=== PATIENT | male | born 1950 | race Caucasian/White ===

== ENCOUNTER 2019-05-09 09:34 | Outpatient (CLI) | payer MEDICARE, OTHER, SELFPAY ==
[2019-05-09 09:35] VITALS: BP 148/89; PULSE 77; RESP 16; TEMP 37.3; O2SAT 100; BMI 28.8
[2019-05-09] MEDS: TBO-FILGRASTIM 480 MCG/0.8 ML ML SC (09:56)
[2019-05-09] MEDS: TBO-FILGRASTIM 480 MCG/0.8 ML ML 420 MCG SC (09:57)
--- NOTE | 2019-05-09 09:58 | ED.RN ---
PATIENT MEDICATED PER ORDERS, AMBULATES OUT OF DEPARTMENT WITHOUT ISSUE.
== END 2019-05-09 09:58 | disposition home or self-care (01) ==
LOC: ED 05-11 10:56
PROVIDERS: Family Provider Internal Medicine Hematology; PCP Internal Medicine Hematology
DX: C85.90 Non-Hodgkin lymphoma, unspecified, unspecified site (principal)
CPT/HCPCS: 96372; J1447

== ENCOUNTER 2019-05-10 09:23 | Outpatient (CLI) | payer MEDICARE, OTHER, SELFPAY ==
[2019-05-09 09:35] VITALS: BMI 28.8
[2019-05-10 09:31] VITALS: BP 129/79; PULSE 77; RESP 16; TEMP 36.6; O2SAT 98; BMI 28.0
[2019-05-10] MEDS: TBO-FILGRASTIM 480 MCG/0.8 ML ML SC (09:53)
[2019-05-10] MEDS: TBO-FILGRASTIM 480 MCG/0.8 ML ML 420 MCG SC (09:53)
== END 2019-05-10 09:54 | disposition home or self-care (01) ==
LOC: ED 05-11 10:58
PROVIDERS: Family Provider Internal Medicine Hematology; PCP Internal Medicine Hematology
DX: C85.90 Non-Hodgkin lymphoma, unspecified, unspecified site (principal)
CPT/HCPCS: 96372; J1447

== ENCOUNTER → 2019-05-11 11:24 | Outpatient (CLI) | payer MEDICARE, OTHER, SELFPAY ==
[2019-05-10 09:31] VITALS: BMI 28.0
[2019-05-11 11:53] VITALS: BP 115/80; PULSE 66; RESP 18; TEMP 37.3; O2SAT 96; BMI 28.0
[2019-05-11] MEDS: TBO-FILGRASTIM 480 MCG/0.8 ML ML SC (12:00)
[2019-05-11] MEDS: TBO-FILGRASTIM 480 MCG/0.8 ML ML 420 MCG SC (12:01)
== END ==
PROVIDERS: Family Provider Internal Medicine Hematology; PCP Internal Medicine Hematology; Referring Provider Internal Medicine Hematology; Visit Provider Internal Medicine Hematology
DX: C85.90 Non-Hodgkin lymphoma, unspecified, unspecified site (principal)
CPT/HCPCS: 96372; J1447

== ENCOUNTER → 2019-05-12 10:02 | Outpatient (CLI) | payer MEDICARE, OTHER, SELFPAY ==
[2019-05-11 11:53] VITALS: BMI 28.0
[2019-05-12 10:16] VITALS: BP 147/86; PULSE 71; RESP 16; TEMP 36.7; BMI 28.0
[2019-05-12] MEDS: TBO-FILGRASTIM 480 MCG/0.8 ML ML SC (10:20)
[2019-05-12] MEDS: TBO-FILGRASTIM 480 MCG/0.8 ML ML 420 MCG SC (10:21)
== END ==
PROVIDERS: Family Provider Internal Medicine Hematology; PCP Internal Medicine Hematology; Referring Provider Internal Medicine Hematology; Visit Provider Internal Medicine Hematology
DX: C85.90 Non-Hodgkin lymphoma, unspecified, unspecified site (principal)
CPT/HCPCS: 96372; J1447

== ENCOUNTER → 2019-06-12 13:29 | Outpatient (CLI) | payer MEDICARE, OTHER, SELFPAY ==
[2019-05-12 10:16] VITALS: BMI 28.0
[2019-06-12 13:49] VITALS: BP 125/77; PULSE 75; RESP 16; TEMP 36.7; O2SAT 99; BMI 26.6
== END ==
PROVIDERS: PCP Internal Medicine Hematology
DX: A41.9 Sepsis, unspecified organism (principal); D70.9 Neutropenia, unspecified
CPT/HCPCS: 96365; J7050; A4216; J0696

== ENCOUNTER 2019-06-13 13:21 | Outpatient (CLI) | payer MEDICARE, OTHER, SELFPAY ==
[2019-05-12 10:16] VITALS: BMI 28.0
[2019-06-12 13:49] VITALS: BMI 26.6
[2019-06-13 13:40] VITALS: BP 116/78; PULSE 77; RESP 16; TEMP 36.7; O2SAT 97
== END 2019-06-13 14:47 | disposition home or self-care (01) ==
LOC: MEDOUTP 13:26 → PCU 13:28
PROVIDERS: PCP Internal Medicine Hematology; Referring Provider Internal Medicine Hematology
DX: A41.9 Sepsis, unspecified organism (principal); D70.9 Neutropenia, unspecified
CPT/HCPCS: 96365; J0696

== ENCOUNTER 2019-06-14 12:07 | Outpatient (CLI) | payer MEDICARE, OTHER, SELFPAY ==
[2019-05-12 10:16] VITALS: BMI 28.0
[2019-06-12 13:49] VITALS: BMI 26.6
[2019-06-14 12:47] VITALS: BP 109/67; PULSE 65; RESP 18; TEMP 36.8; O2SAT 99
[2019-06-14] MEDS: 0.9% Saline Lock 10 ML Syringe IV (13:30)
== END 2019-06-14 13:36 | disposition home or self-care (01) ==
LOC: MEDOUTP 12:21 → PCU 12:22
PROVIDERS: PCP Internal Medicine Hematology
DX: A41.9 Sepsis, unspecified organism (principal); D70.9 Neutropenia, unspecified
CPT/HCPCS: 96365; J7050; A4216; J0696

== ENCOUNTER → 2019-06-15 12:49 | Outpatient (CLI) | payer MEDICARE, OTHER, SELFPAY ==
[2019-05-12 10:16] VITALS: BMI 28.0
[2019-06-12 13:49] VITALS: BMI 26.6
[2019-06-15 12:55] VITALS: BP 107/68; PULSE 75; RESP 16; TEMP 36.6; O2SAT 99; BMI 25.8
== END ==
PROVIDERS: PCP Internal Medicine Hematology
DX: A41.9 Sepsis, unspecified organism (principal); D70.9 Neutropenia, unspecified
CPT/HCPCS: 96365; J7050; A4216; J0696

== ENCOUNTER → 2019-06-16 13:13 | Outpatient (CLI) | payer MEDICARE, OTHER, SELFPAY ==
[2019-05-12 10:16] VITALS: BMI 28.0
[2019-06-15 12:55] VITALS: BMI 25.8
[2019-06-16 13:23] VITALS: BP 103/69; PULSE 73; RESP 16; TEMP 36.7; O2SAT 100; BMI 25.8
== END ==
PROVIDERS: PCP Internal Medicine Hematology
DX: A41.9 Sepsis, unspecified organism (principal); D70.9 Neutropenia, unspecified
CPT/HCPCS: 96365; J7050; A4216; J0696

== ENCOUNTER → 2019-06-17 12:53 | Outpatient (CLI) | payer MEDICARE, OTHER, SELFPAY ==
[2019-05-12 10:16] VITALS: BMI 28.0
[2019-06-16 13:23] VITALS: BMI 25.8
[2019-06-17 13:04] VITALS: BP 112/73; PULSE 68; RESP 16; TEMP 36.4; O2SAT 97; BMI 25.8
== END ==
PROVIDERS: PCP Internal Medicine Hematology
DX: A41.9 Sepsis, unspecified organism (principal); D70.9 Neutropenia, unspecified
CPT/HCPCS: 96365; J7050; A4216; J0696

== ENCOUNTER → 2019-06-19 12:24 | Outpatient (CLI) | payer MEDICARE, OTHER, SELFPAY ==
[2019-05-12 10:16] VITALS: BMI 28.0
[2019-06-17 13:04] VITALS: BMI 25.8
[2019-06-19 12:39] VITALS: BP 107/72; PULSE 74; RESP 18; TEMP 36.9; O2SAT 100; BMI 25.8
[2019-06-19 13:51] VITALS: BP 104/66; PULSE 67; RESP 18; TEMP 37.1
== END ==
PROVIDERS: PCP Internal Medicine Hematology
DX: A41.9 Sepsis, unspecified organism (principal); D70.9 Neutropenia, unspecified
CPT/HCPCS: 96365; A4216; J0696

== ENCOUNTER 2019-06-20 10:53 | Outpatient (CLI) | payer MEDICARE, OTHER, SELFPAY ==
[2019-06-15 12:55] VITALS: BMI 25.8
[2019-06-19 12:39] VITALS: BMI 25.8
[2019-06-20 11:20] VITALS: BP 109/68; PULSE 65; RESP 16; TEMP 36.9; O2SAT 99
[2019-06-20] MEDS: 0.9% Saline Lock 10 ML Syringe IV ×2 (11:30→12:08)
--- NOTE | 2019-06-20 12:21 | NURSING ---
Reviewed and agreed on all charting with Maria R Patel RN
== END 2019-06-20 12:17 | disposition home or self-care (01) ==
LOC: MEDOUTP 10:53 → PCU 10:57
PROVIDERS: PCP Internal Medicine Hematology
DX: A41.9 Sepsis, unspecified organism (principal); D70.9 Neutropenia, unspecified
CPT/HCPCS: 96365; J7050; A4216; J0696

== ENCOUNTER 2019-06-21 11:04 | Outpatient (CLI) | payer MEDICARE, OTHER, SELFPAY ==
[2019-06-15 12:55] VITALS: BMI 25.8
[2019-06-19 12:39] VITALS: BMI 25.8
[2019-06-21 11:10] VITALS: BP 116/59; PULSE 91; RESP 14; TEMP 36.7; O2SAT 97; BMI 25.8
[2019-06-21] MEDS: 0.9% Saline Lock 10 ML Syringe IV ×2 (11:23→11:54)
--- NOTE | 2019-06-21 12:01 | NURSING ---
FLUSHED PORT LINE WITH 10 CC NS BEFORE AND AFTER ANTIBIOTIC INFUSION, BLOOD RETURN NOTED. VSS. PT TOLERATED WELL.
== END 2019-06-21 11:58 | disposition home or self-care (01) ==
LOC: MEDOUTP 11:04 → PCU 11:05
PROVIDERS: PCP Internal Medicine Hematology
DX: A41.9 Sepsis, unspecified organism (principal); D70.9 Neutropenia, unspecified
CPT/HCPCS: 96365; A4216; J0696

== ENCOUNTER → 2019-06-22 11:10 | Outpatient (CLI) | payer MEDICARE, OTHER, SELFPAY ==
[2019-06-15 12:55] VITALS: BMI 25.8
[2019-06-21 11:10] VITALS: BMI 25.8
[2019-06-22 11:16] VITALS: BP 110/69; PULSE 73; RESP 16; TEMP 36.6; O2SAT 100; BMI 25.8
== END ==
PROVIDERS: PCP Internal Medicine Hematology
DX: A41.9 Sepsis, unspecified organism (principal); D70.9 Neutropenia, unspecified
CPT/HCPCS: 96365; J7050; A4216; J0696

== ENCOUNTER → 2019-06-23 09:51 | Outpatient (CLI) | payer MEDICARE, OTHER, SELFPAY ==
[2019-06-15 12:55] VITALS: BMI 25.8
[2019-06-22 11:16] VITALS: BMI 25.8
[2019-06-23 09:58] VITALS: BP 110/62; PULSE 71; RESP 14; TEMP 36.6; O2SAT 100; BMI 25.8
[2019-06-23 11:03] VITALS: BP 100/63; RESP 16
== END ==
LOC: MEDOUTP 09:52
PROVIDERS: PCP Internal Medicine Hematology
DX: A41.9 Sepsis, unspecified organism (principal); D70.9 Neutropenia, unspecified
CPT/HCPCS: 96365; J7050; A4216; J0696

== ENCOUNTER → 2019-11-09 | Outpatient (CLI) | payer MEDICARE, OTHER, SELFPAY ==
[2019-06-23 09:58] VITALS: BMI 25.8
== END | disposition home or self-care (01) ==
LOC: LABSPEC 11:04
PROVIDERS: PCP Internal Medicine Hematology
DX: C86.5 Angioimmunoblastic T-cell lymphoma (principal)
CPT/HCPCS: 87635; G2023; U0003

== ENCOUNTER → 2019-12-01 11:39 | Outpatient (CLI) | payer MEDICARE, OTHER, SELFPAY ==
[2019-06-23 09:58] VITALS: BMI 25.8
== END ==
PROVIDERS: PCP Internal Medicine Hematology
DX: Z11.59 Encounter for screening for other viral diseases (principal)
CPT/HCPCS: 87635; G2023; U0003

== ENCOUNTER → 2019-12-15 10:01 | Outpatient (CLI) | payer MEDICARE, OTHER, SELFPAY ==
[2019-06-23 09:58] VITALS: BMI 25.8
== END ==
PROVIDERS: PCP Internal Medicine Hematology
DX: R59.1 Generalized enlarged lymph nodes (principal)
CPT/HCPCS: 36415

== ENCOUNTER → 2020-02-17 10:47 | Outpatient (CLI) | payer MEDICARE, OTHER, SELFPAY ==
[2019-06-23 09:58] VITALS: BMI 25.8
[2020-02-17 11:24] LABS: Absolute Lymphocyte Count 0.88 X10^3/uL (0.83-4.51); Absolute Neutrophil Count 2.1 X10^3/uL (2.0-7.7); Basophil# 0.02 X10^3/uL; Basophil% 0.6 % (0-1); Eosinophil# 0.04 X10^3/uL; Eosinophils% 1.2 % (0-5); Hemoglobin 12.3 g/dL (13.0-16.5); Lymphocyte # 0.88 X10^3/ul (4.0); Mean Corp Hgb Conc 34.2 g/dL (32-36); Mean Corpuscular Hgb 30.8 pg (27.0-32.0); Mean Corpuscular Volume 90.2 fL (80-94); Mean Platelet Vol. 9.7 fl (6.2-12.0); Monocyte% 8.8 % (0-10); NRBC Flagged by Analyzer 0 % (0-5); Neutrophil # 2.14 X10^3/uL (2.7-7.7); Neutrophil % 63.1 % (47-70); Platelet Count 105 K/mm3 (150-450); RBC Distribution Width CV 12.8 % (11.6-14.6); RBC Distribution Width SD 42.3 fl (35.1-43.9); Red Blood Count 3.99 M/mm3 (4.6-6.2); White Blood Count 3.4 K/mm3 (4.4-11.0)
== END ==
PROVIDERS: PCP Internal Medicine Hematology
DX: C86.5 Angioimmunoblastic T-cell lymphoma (principal)
CPT/HCPCS: 36415; 85025

== ENCOUNTER → 2020-03-30 17:18 | Outpatient (CLI) | payer MEDICARE, OTHER, SELFPAY ==
[2019-06-23 09:58] VITALS: BMI 25.8
== END ==
PROVIDERS: PCP Internal Medicine Hematology
DX: U07.1 COVID-19 (principal)
CPT/HCPCS: 87635; C9803; U0003

== ENCOUNTER → 2020-06-10 10:14 | Outpatient (CLI) | payer MEDICARE, OTHER, SELFPAY ==
[2019-06-23 09:58] VITALS: BMI 25.8
[2020-06-10 10:44] LABS: Absolute Lymphocyte Count 1.27 X10^3/uL (0.83-4.51); Absolute Neutrophil Count 2.4 X10^3/uL (2.0-7.7); Basophil# 0.04 X10^3/uL; Basophil% 0.9 % (0-1); Eosinophil# 0.11 X10^3/uL; Eosinophils% 2.6 % (0-5); Hematocrit 37.7 % (40-54); Hemoglobin 12.7 g/dL (13.0-16.5); Lymphocyte # 1.27 X10^3/ul (4.0); Lymphocyte % 29.8 % (19-41); Mean Corp Hgb Conc 33.7 g/dL (32-36); Mean Corpuscular Hgb 30.5 pg (27.0-32.0); Mean Corpuscular Volume 90.4 fL (80-94); Mean Platelet Vol. 9.3 fl (6.2-12.0); Monocyte# 0.42 X10^3/uL; Monocyte% 9.9 % (0-10); NRBC Flagged by Analyzer 0 % (0-5); Neutrophil # 2.42 X10^3/uL (2.7-7.7); Neutrophil % 56.8 % (47-70); POSITIVE COUNT YES; Platelet Count 91 K/mm3 (150-450); RBC Distribution Width CV 12.7 % (11.6-14.6); RBC Distribution Width SD 41.5 fl (35.1-43.9); Red Blood Count 4.17 M/mm3 (4.6-6.2); White Blood Count 4.3 K/mm3 (4.4-11.0)
[2020-06-10 10:45] LABS: Differential Indicated SCAN CRITERIA MET
[2020-06-10 11:09] LABS: Anisocytosis 1+; Platelet Estimate SLT DEC (ADEQ)
[2020-06-10 11:12] LABS: ALB/GLOB Ratio 1.6 RATIO (0.9-2.4); AST(SGOT) 25 U/L (15-37); Alanine Aminotransfer ALT/SGPT 47 U/L (16-61); Albumin, Serum 4.2 g/dL (3.2-5.0); Alkaline Phosphatase 88 U/L (45-117); Anion Gap 3 (5-15); BUN 25 mg/dL (7-18); BUN/Creat Ratio 25.7 RATIO (10-20); Calcium,Total 9.2 mg/dL (8.5-10.1); Chloride 109 mmol/L (98-107); Creatinine, Serum 0.97 mg/dL (0.70-1.30); EST Glomerular Filtration Rate 81 mL/min (>60); Est Glom Filt Rate - Afr Amer 98 mL/min (>60); Globulin 2.6 g/dL (2.2-4.2); Glucose 91 mg/dL (74-106); Potassium 4.5 mmol/L (3.5-5.1); Protein, Total 6.8 g/dL (6.4-8.2); Sodium Level 140 mmol/L (136-145)
== END ==
LOC: LABSPEC 10:22 → LAB 10:28
PROVIDERS: PCP Internal Medicine Hematology
DX: C86.5 Angioimmunoblastic T-cell lymphoma (principal)
CPT/HCPCS: 36415; 80053; 85025

== ENCOUNTER → 2020-07-01 10:25 | Outpatient (CLI) | payer MEDICARE, OTHER, SELFPAY ==
[2019-06-23 09:58] VITALS: BMI 25.8
[2020-07-01 12:45] LABS: Absolute Lymphocyte Count 1.02 X10^3/uL (0.83-4.51); Absolute Neutrophil Count 2.5 X10^3/uL (2.0-7.7); Basophil# 0.03 X10^3/uL; Basophil% 0.7 % (0-1); Eosinophil# 0.08 X10^3/uL; Hematocrit 37.5 % (40-54); Hemoglobin 13.2 g/dL (13.0-16.5); Lymphocyte # 1.02 X10^3/ul (4.0); Lymphocyte % 25.3 % (19-41); Mean Corp Hgb Conc 35.2 g/dL (32-36); Mean Corpuscular Hgb 31.3 pg (27.0-32.0); Mean Corpuscular Volume 88.9 fL (80-94); Mean Platelet Vol. 10.6 fl (6.2-12.0); Monocyte# 0.37 X10^3/uL; Monocyte% 9.2 % (0-10); NRBC Flagged by Analyzer 0 % (0-5); Neutrophil # 2.52 X10^3/uL (2.7-7.7); Neutrophil % 62.6 % (47-70); POSITIVE COUNT YES; Platelet Count 98 K/mm3 (150-450); RBC Distribution Width CV 12.6 % (11.6-14.6); RBC Distribution Width SD 40.8 fl (35.1-43.9); Red Blood Count 4.22 M/mm3 (4.6-6.2)
[2020-07-01 12:47] LABS: Differential Indicated SCAN CRITERIA MET
[2020-07-01 13:06] LABS: Platelet Estimate SLT DEC (ADEQ)
[2020-07-01 13:21] LABS: ALB/GLOB Ratio 1.6 RATIO (0.9-2.4); AST(SGOT) 29 U/L (15-37); Alanine Aminotransfer ALT/SGPT 48 U/L (16-61); Albumin, Serum 4.2 g/dL (3.2-5.0); Alkaline Phosphatase 95 U/L (45-117); Anion Gap 6 (5-15); BUN 22 mg/dL (7-18); BUN/Creat Ratio 20.8 RATIO (10-20); Calcium,Total 9.5 mg/dL (8.5-10.1); Chloride 108 mmol/L (98-107); Creatinine, Serum 1.06 mg/dL (0.70-1.30); EST Glomerular Filtration Rate 73 mL/min (>60); Est Glom Filt Rate - Afr Amer 88 mL/min (>60); Globulin 2.6 g/dL (2.2-4.2); Glucose 94 mg/dL (74-106); Potassium 4.1 mmol/L (3.5-5.1); Protein, Total 6.8 g/dL (6.4-8.2); Sodium Level 139 mmol/L (136-145)
== END ==
PROVIDERS: PCP Internal Medicine Hematology
DX: Z71.89 Other specified counseling (principal)
CPT/HCPCS: 36415; 80053; 85025

== ENCOUNTER → 2020-08-25 10:25 | Outpatient (CLI) | payer MEDICARE, OTHER, SELFPAY ==
[2019-06-23 09:58] VITALS: BMI 25.8
[2020-08-25 11:39] LABS: Absolute Lymphocyte Count 1.12 X10^3/uL (0.83-4.51); Absolute Neutrophil Count 2.9 X10^3/uL (2.0-7.7); Basophil# 0.03 X10^3/uL; Basophil% 0.7 % (0-1); Eosinophil# 0.12 X10^3/uL; Eosinophils% 2.6 % (0-5); Hemoglobin 13.2 g/dL (13.0-16.5); Lymphocyte # 1.12 X10^3/ul (4.0); Lymphocyte % 24.7 % (19-41); Mean Corp Hgb Conc 33.8 g/dL (32-36); Mean Corpuscular Hgb 30.5 pg (27.0-32.0); Mean Corpuscular Volume 90.1 fL (80-94); Monocyte# 0.37 X10^3/uL; Monocyte% 8.2 % (0-10); NRBC Flagged by Analyzer 0 % (0-5); Neutrophil # 2.88 X10^3/uL (2.7-7.7); Neutrophil % 63.6 % (47-70); POSITIVE COUNT YES; Platelet Count 98 K/mm3 (150-450); RBC Distribution Width CV 12.5 % (11.6-14.6); RBC Distribution Width SD 41.1 fl (35.1-43.9); Red Blood Count 4.33 M/mm3 (4.6-6.2); White Blood Count 4.5 K/mm3 (4.4-11.0)
[2020-08-25 11:40] LABS: Differential Indicated SCAN CRITERIA MET
[2020-08-25 12:11] LABS: ALB/GLOB Ratio 1.4 RATIO (0.9-2.4); AST(SGOT) 32 U/L (15-37); Alanine Aminotransfer ALT/SGPT 50 U/L (16-61); Alkaline Phosphatase 103 U/L (45-117); Anion Gap 5 (5-15); BUN 22 mg/dL (7-18); BUN/Creat Ratio 22.9 RATIO (10-20); Calcium,Total 9.5 mg/dL (8.5-10.1); Chloride 107 mmol/L (98-107); Creatinine, Serum 0.96 mg/dL (0.70-1.30); EST Glomerular Filtration Rate 82 mL/min (>60); Est Glom Filt Rate - Afr Amer 99 mL/min (>60); Globulin 2.8 g/dL (2.2-4.2); Glucose 101 mg/dL (74-106); LDH 203 U/L (87-241); Potassium 4.5 mmol/L (3.5-5.1); Protein, Total 6.8 g/dL (6.4-8.2); Sodium Level 139 mmol/L (136-145)
[2020-08-25 12:40] LABS: Platelet Estimate MOD DEC (ADEQ)
== END ==
PROVIDERS: PCP Internal Medicine Hematology; Referring Provider Internal Medicine Hematology; Visit Provider Internal Medicine Hematology
DX: C86.5 Angioimmunoblastic T-cell lymphoma (principal)
CPT/HCPCS: 36415; 80053; 83615; 85025

== ENCOUNTER → 2024-10-13 | Outpatient (CLI) | payer MEDICARE, OTHER, SELFPAY ==
[2024-10-13 22:35] LABS: Absolute Lymphocyte Count 1.19 X10^3/uL (0.83-4.51); Absolute Neutrophil Count 4.4 X10^3/uL (2.0-7.7); Basophil# 0.04 X10^3/uL; Basophil% 0.6 % (0-1); Eosinophil# 0.12 X10^3/uL; Eosinophils% 1.9 % (0-5); Hemoglobin 14.1 g/dL (13.0-16.5); Lymphocyte # 1.19 X10^3/ul (0.83-4.51); Lymphocyte % 18.7 % (19-41); Mean Corp Hgb Conc 35.3 g/dL (32-36); Mean Corpuscular Hgb 30.4 pg (27.0-32.0); Mean Corpuscular Volume 86.2 fL (80-94); Mean Platelet Vol. 10.9 fl (6.2-12.0); Monocyte# 0.56 X10^3/uL; Monocyte% 8.8 % (0-10); NRBC Flagged by Analyzer 0 % (0-5); Neutrophil # 4.43 X10^3/uL (2.7-7.7); Neutrophil % 69.8 % (47-70); Platelet Count 113 K/mm3 (150-450); RBC Distribution Width CV 12.5 % (11.6-14.6); Red Blood Count 4.64 M/mm3 (4.6-6.2); White Blood Count 6.4 K/mm3 (4.4-11.0)
[2024-10-13 22:49] LABS: ALB/GLOB Ratio 2.2 RATIO (0.9-2.4); AST(SGOT) 33 U/L (<=37); Alanine Aminotransfer ALT/SGPT 28 U/L (<=46); Albumin, Serum 4.6 g/dL (3.4-4.8); Alkaline Phosphatase 93 U/L (40-129); Anion Gap 10 (5-15); BUN 22 mg/dL (4-19); BUN/Creat Ratio 19.5 RATIO (10-20); Calcium,Total 9.7 mg/dL (7.6-11.0); Carbon Dioxide 24.4 mmol/L (21.0-32.0); Chloride 104 mmol/L (98-108); Cholesterol 206 mg/dL (<=200); Creatinine, Serum 1.11 mg/dL (0.70-1.20); EST Glomerular Filtration Rate 69 (>60); Globulin 2.1 g/dL (2.2-4.2); Glucose 99 mg/dL (70-99); High Density Lipoprotein 47 mg/dL; Low Density Lipoprotein Calc. 131 mg/dL; Potassium 4.2 mmol/L (3.3-5.1); Protein, Total 6.7 g/dL (5.9-8.4); Sodium Level 138 mmol/L (133-145); Total Bilirubin 1.43 mg/dL (0.00-1.30); Triglycerides 142 mg/dL; Very Low Density Lipoprotein 28 mg/dL (5-40); cholesterol:hdl ratio screen 4.38
== END | disposition home or self-care (01) ==
LOC: OLS.AHF 22:21
PROVIDERS: PCP Internal Medicine Hematology; Visit Provider Nurse Practitioner
DX: L02.222 Furuncle of back [any part, except buttock and flank] (principal); E78.00 Pure hypercholesterolemia, unspecified; N40.0 Benign prostatic hyperplasia without lower urinary tract symptoms; Z12.5 Encounter for screening for malignant neoplasm of prostate
CPT/HCPCS: 80053; 80061; 84153; 85025; 87070; 87077; 87186; 87205; G0103